=== PATIENT | female | born 1990 | race Asian ===

== ENCOUNTER → 2016-07-19 | Outpatient (CLI) | payer BC ==
[~2016-07-19] MED LIST: ACET50TA PO; IBUP80TA PO; PRENATAL VITAMIN PO
[2016-07-19 12:22] LABS: MEAN CORPUSCULAR HEMOGLOBIN 29.3 pg (27.0-33.0); MEAN CORPUSCULAR HGB CONC 34.5 g/dl (32.0-36.5); MEAN CORPUSCULAR VOLUME 84.9 fl (80.0-96.0); WHITE BLOOD COUNT 6.3 K/mm3 (4.0-10.0)
[2016-07-19 12:52] LABS: ALBUMIN 3.7 GM/DL (3.2-5.2); ALBUMIN/GLOBULIN RATIO 0.93 (1.00-1.93); ALKALINE PHOSPHATASE 71 U/L (45-117); ALT/SGPT 25 U/L (12-78); ANION GAP 8 MEQ/L (8-16); AST/SGOT 12 U/L (15-37); BILIRUBIN,TOTAL 0.3 MG/DL (0.2-1.0); BLOOD UREA NITROGEN 14 MG/DL (7-18); CALCIUM LEVEL 8.8 MG/DL (8.5-10.1); CARBON DIOXIDE LEVEL 26 MEQ/L (21-32); CHLORIDE LEVEL 108 MEQ/L (98-107); CREATININE FOR GFR 0.65 MG/DL (0.55-1.02); FERRITIN 35 NG/ML (8-252); GLOMERULAR FILTRATION RATE > 60.0 (>60); GLUCOSE, FASTING 81 MG/DL (70-105); LUTEINIZING HORMONE 5.6 mIU/mL; PERCENT SATURATION 26.2 % (13.2-37.4); POTASSIUM SERUM 3.9 MEQ/L (3.5-5.1); PROLACTIN 3.8 NG/ML; SODIUM LEVEL 142 MEQ/L (136-145); T UPTAKE 32 % (30-39); THYROXINE (T4) 11.4 UG/DL (4.5-12.0); TOTAL IRON BINDING CAPACITY 332 UG/DL (250-450); TOTAL PROTEIN 7.7 GM/DL (6.4-8.2)
[2016-07-19 12:53] LABS: FOLLICLE STIMULATING HORMONE 2.2 mIU/mL
== END ==
LOC: M LAB 11:58
PROVIDERS: ATTEND Internal Medicine
DX: N94.6 Dysmenorrhea, unspecified (principal)

== ENCOUNTER → 2017-01-19 | Outpatient (CLI) | payer BC ==
[~2017-01-19] MED LIST changes: +CIPRODEX AS
[2017-01-19 15:04] LABS: BASO % 0.3 % (0.0-1.0); EOS # 0.1 K/mm3 (0.0-0.50); EOS % 1.2 % (0.0-3.0); LARGE UNSTAINED CELL # 0.1 K/mm3 (0.0-0.4); LARGE UNSTAINED CELL % 1.2 % (0.0-4.0); LYMPH # 2.3 K/mm3 (1.5-6.5); MEAN CORPUSCULAR HEMOGLOBIN 28.5 pg (27.0-33.0); MEAN CORPUSCULAR HGB CONC 32.4 g/dl (32.0-36.5); MONO # 0.5 K/mm3 (0.0-0.8); MONO % 6.3 % (0.0-5.0); NEUTROPHILS # 5.1 K/mm3 (1.8-7.7); NEUTROPHILS % 63.8 % (36.0-66.0); PLATELET COUNT, AUTOMATED 239 k/mm3 (150-450)
[2017-01-20 10:27] LABS: HBsAg Prenatal NEGATIVE (NEGATIVE)
== END ==
LOC: M SMT 13:17
PROVIDERS: ATTEND Specialist
DX: Z36 Encounter for antenatal screening of mother (principal)

== ENCOUNTER → 2017-02-01 | Outpatient (CLI) | payer BC ==
[2017-02-07 14:15] LABS: ANTI TETANUS ANTIBODY 0.92 IU/mL (<0.10)
== END ==
LOC: M SMT 15:42
PROVIDERS: ATTEND Internal Medicine
DX: Z00.00 Encounter for general adult medical examination without abnormal findings (principal)

== ENCOUNTER → 2017-06-13 | Outpatient (CLI) | payer BC ==
[2017-06-13 13:33] LABS: BASO % 0.2 % (0.0-1.0); EOS # 0.1 10^3/uL (0.0-0.50); EOS % 1.3 % (0.0-3.0); IMMATURE GRANULOCYTE % 0.6 % (0-0); LYMPH # 1.8 10^3/uL (1.5-6.5); LYMPH % 19.2 % (24.0-44.0); MEAN CORPUSCULAR HEMOGLOBIN 29.5 pg (27.0-33.0); MEAN CORPUSCULAR HGB CONC 33.2 g/dl (32.0-36.5); MEAN CORPUSCULAR VOLUME 88.9 fl (80.0-96.0); MONO # 0.6 10^3/uL (0.0-0.8); MONO % 6.8 % (0.0-5.0); NEUTROPHILS # 6.7 10^3/uL (1.8-7.7); NEUTROPHILS % 71.9 % (36.0-66.0); PLATELET COUNT, AUTOMATED 213 10^3/uL (150-450); WHITE BLOOD COUNT 9.3 10^3/uL (4.0-10.0)
== END ==
LOC: M SMT 09:56
PROVIDERS: ATTEND Specialist
DX: Z34.82 Encounter for supervision of other normal pregnancy, second trimester (principal); Z3A.00 Weeks of gestation of pregnancy not specified

== ENCOUNTER → 2017-08-08 | Outpatient (CLI) | payer BC | LOC: M RAD 13:22 | DX: Z36.4 Encounter for antenatal screening for fetal growth retardation (principal); O36.5933 Maternal care for other known or suspected poor fetal growth, third trimester, fetus 3; Z3A.34 34 weeks gestation of pregnancy | CPT/HCPCS: 76816 ==

== ENCOUNTER → 2017-08-24 | Outpatient (REF) | payer BC | LOC: M LAB REF 17:12 | DX: Z36.85 Encounter for antenatal screening for Streptococcus B (principal); Z3A.00 Weeks of gestation of pregnancy not specified | CPT/HCPCS: 87081 ==

== ENCOUNTER 2017-09-03 18:13 | Inpatient (IN) | payer BC ==
[2017-09-03 20:14] LABS: HEMATOCRIT 36.8 % (36.0-47.0); HEMOGLOBIN 12.3 g/dl (12.0-16.0); MEAN CORPUSCULAR HGB CONC 33.4 g/dl (32.0-36.5); MEAN CORPUSCULAR VOLUME 86.8 fl (80.0-96.0); PLATELET COUNT, AUTOMATED 213 10^3/uL (150-450); RED BLOOD COUNT 4.24 10^6/uL (4.00-5.40); RED CELL DISTRIBUTION WIDTH 13.5 % (11.5-14.5); WHITE BLOOD COUNT 11.9 10^3/uL (4.0-10.0)
[2017-09-03] MEDS: OXYTOCIN DRIP 30 UNITS in APPROPRIATE DILUENT 1 EA IV (22:08)
[2017-09-03] MEDS: LR 1,000 ML IV (22:08)
[2017-09-03] MEDS ORDERED: FENTANYL 2MCG/ML ROPIVACAINE 0.2% IN 0.9% NACL 200ML IVBAG As Ordered (22:55)
[2017-09-03] MEDS ORDERED: NALOXONE INJ 0.4 MG/1 ML VIAL (J2310) IV (23:25)
[2017-09-03] MEDS ORDERED: EPIDURAL COMMENT XX (23:25)
[2017-09-03] MEDS ORDERED: ONDANSETRON 4MG/2ML VIAL (J2405) IV (23:25)
[2017-09-03] MEDS ORDERED: LACTATED RINGER'S 1000 ML IV (23:25)
[2017-09-03] MEDS ORDERED: ePHEDrine SULFATE 25 MG/5 ML(5MG/ML) SYRINGE IV (23:25)
[2017-09-03] MEDS ORDERED: FENTANYL/ROPIVACAINE/NACL BAG 200 ML EPIDURAL (23:25)
[2017-09-03] MEDS ORDERED: REFRIGERATOR IV KEYS XX (23:25)
[2017-09-03] MEDS ORDERED: diphenhydrAMINE INJ 50MG/ML VIAL (J1200) IV (23:25)
[2017-09-03] MEDS ORDERED: EPIDURAL/PCA KEYS XX (23:25)
[2017-09-04] MEDS: OXYTOCIN DRIP 30 UNITS in APPROPRIATE DILUENT 1 EA IV (00:46)
[2017-09-04] MEDS ORDERED: MEASLES,MUMPS,RUBELLA VACCINE INJ (MMR-II) (90707) SC (01:15)
[2017-09-04] MEDS ORDERED: DIBUCAINE 1% OINTMENT 30GM TOP (01:15)
[2017-09-04] MEDS ORDERED: ONDANSETRON 4MG/2ML VIAL (J2405) IV (01:15)
[2017-09-04] MEDS ORDERED: DOCUSATE SODIUM 100 MG CAP PO (01:15)
[2017-09-04] MEDS ORDERED: RHOGAM 300 MCG (1500 IU) INJ (J2790) IM (01:15)
[2017-09-04] MEDS ORDERED: METHYLERGONOVINE MALEATE 0.2 MG TAB PO (01:15)
[2017-09-04] MEDS: IBUPROFEN 800 MG TAB PO ×2 (06:04→14:36)
[2017-09-04] MEDS: PRENATAL VITAMINS CHEWABLE TABLET PO (08:27)
[2017-09-04] MEDS: ACETAMINOPHEN 500 MG TAB PO ×2 (12:06→18:47)
[2017-09-05] MEDS: IBUPROFEN 800 MG TAB PO ×2 (00:14→12:55)
[2017-09-05] MEDS: PRENATAL VITAMINS CHEWABLE TABLET PO (10:21)
[2017-09-06] MEDS: IBUPROFEN 800 MG TAB PO (03:23)
[2017-09-06] MEDS: PRENATAL VITAMINS CHEWABLE TABLET PO (08:36)
== END 2017-09-06 13:00 | disposition home or self-care (01) | DRG 560 ==
LOC: M LDO 18:13 → M OBS 09-04 05:36 → M LDI 19:30
PROVIDERS: Specialist
PROC: 10E0XZZ Delivery of Products of Conception, External Approach (ICD-10-PCS; principal; 2017-09-04)
DX: O43.113 Circumvallate placenta, third trimester (principal); Z37.0 Single live birth; Z3A.38 38 weeks gestation of pregnancy